=== PATIENT | female | born 2005 | race African-American/Black ===

== ENCOUNTER 2024-12-20 02:17 | Emergency (ER) | payer OTHER ==
[~2024-12-20] VITALS: Ht 160 cm; Wt 83.8 kg
--- NOTE | 2024-12-20 04:35 | ED.PDOC ---
HPI Allergic reaction HPI Comments Pt arrived in ER due to possible allergic reaction. pt VSS. No resp distress present. Denies SOB or difficulty swallowing. No hives or visible rash. Pt states she was at work and drank a strawberry fresca at 2200 and an hour later woke up with her eyes "feeling low" and itching in her throat around 0100. Pt complains of 7/10 middle back pain as well Chief Complaint: Allergic Reaction Time Seen by MD: 03:16 Reviewed Notes: Nurses Notes, Medications, Allergies Allergies: Coded Allergies: Peanut-containing Drug Products (Verified Allergy, Unknown, 12/20/24) Home Meds Active Scripts Famotidine (PEPCID TABLET) 20 Mg Tb, 1 TAB PO BID for 6 Days, #12 TAB Prov:ALAN KAHN TREE DEADENER 12/20/24 Methylprednisolone (Medrol Dosepak) 4 Mg Michael, 4 MG PO UD for 6 Days, #21 TAB UAD Prov:CRISSALAN CaseP 12/20/24 Information Source: Patient Mode of Arrival: Ambulatory Past Medical History PAST MEDICAL HISTORY: Denies Surgical History: Denies all surgeries SENIOR WRITER History: No Pertinent SENIOR WRITER History Family History Family History: Reviewed,noncontributory to illness Constitutional: denies: chills, diaphoresis, fatigue, fever, malaise, sweats, weakness, others EENTM: denies: blurred vision, double vision, ear bleeding, ear discharge, ear drainage, ear pain, ear ringing, eye pain, eye redness, hearing loss, mouth pain, mouth swelling, nasal discharge, nose bleeding, nose congestion, nose pain, photophobia, tearing, throat pain, throat swelling, voice changes, others Respiratory: denies: cough, hemoptysis, orthopnea, SOB at rest, shortness of breath, SOB with excertion, stridor, wheezing, others Cardiovascular: reports: chest pain; denies: dizzy spells, diaphoresis, Dyspnea on exertion, edema, irregular heart beat, left arm pain, lightheadedness, palpitations, PND, syncope, others Gastrointestinal: denies: abdomen distended, abdominal pain, blood streaked bowels, constipated, diarrhea, dysphagia, difficulty swallowing, hematemesis, melena, nausea, poor appetite, poor fluid intake, rectal bleeding, rectal pain, vomiting, others Genitourinary: denies: abnormal vagina bleeding, burning, dyspareunia, dysuria, flank pain, frequency, hematuria, incontinence, pain, , vagina discharge, urgency, others Neurological: denies: dizziness, fainting, headache, left sided numbness, left sided weakness, numbness, paresthesia, pre-existing deficit, right sided numbness, right sided weakness, seizure, speech problems, tingling, tremors, weakness, others Musculoskeletal: denies: back pain, gout, joint pain, joint swelling, muscle pain, muscle stiffness, neck pain, others Integumetry: reports: rash; denies: bruises, change in color, change in hair/nails, dryness, laceration, lesions, lumps, wounds, others Allergic/Immunocompromised: denies: Difficulty Healing, Frequent Infections, Hives, Itching, others Hematologic/Lymphatic: denies: anemia, blood clots, easy bleeding, easy bruising, swollen glands, others Endocrine: denies: excessive hunger, excessive sweating, excessive thirst, excessive urination, flushing, intolerance to cold, intolerance to heat, unexplained weight gain, unexplained weight loss, others Psychiatric: denies: anxiety, bipolar disorder, depression, hopeless, panic disorder, schizophrenia, sleepless, suicidal, others Physical Exam General Appearance: No Apparent Distress, Normal HEENT: Pharynx Normal Neck: Full Range of Motion, Non-Tender, Normal, Normal Inspection Respiratory: Chest Non-Tender, Lungs Clear, No Accessory Muscle Use, No Respiratory Distress, Normal Breath Sounds Cardiovascular: No Edema, No JVD, No Murmur, No Gallop, Normal Peripheral Pulses, Regular Rate/Rhythm Breast Exam: Deferred Gastrointestinal: Non Tender, Soft Genitalia: Deferred Pelvic: Deferred Rectal: Deferred Extremities: Normal capillary refill, Normal inspection, Normal range of motion, Non-tender, No pedal edema Musculoskeletal : Apperance: Normal Neurologic: Alert, deli department manager II-XII nml as Tested, No Motor Deficits, Normal Affect, Normal Mood, No Sensory Deficits Cerebellar Function: Normal Reflexes: Normal Skin: Dry, Normal Color, Rash (URTICARIAL RASH NOTED ALONG BILATERAL EYELIDS AND ARMS NO NOTED EXCORIATIONS OR OPEN LESIONS OR DRAINAGE), Warm Lymphatic: No Adenopathy Was a procedure done? Was a procedure done?: No Differential diagnosis (all) Differential Diagnosis: Anaphylaxis, Angioedema, Bronchospasm, Shock X-Ray, Labs, Meds, VS Vital Signs Date Time Temp Pulse Resp B/P (MAP) Pulse Ox O2 Delivery O2 Flow Rate FiO2 12/20/24 02:35 98.2 88 12 110/59 (76) 99 98.2 X-Ray, Labs, Meds, VS Comment DECADRON 10 MG IM. PEPCID 40 MG SCRIPT MEDROL DOSEPAK AND PEPCID. ADVISED TO REST INCREASE P.O. FLUIDS WITH ELECTROLYTES. TAKE MEDICATIONS PRESCRIBED SIDE EFFECTS DISCUSSED. FOLLOW UP WITH YOUR PCP IN 1-2 DAYS CONSIDER REFERRAL TO CLINICAL NURSE SPECIALIST FOR CONTINUED SYMPTOMS. ER RETURN PRECAUTIONS GIVEN PATIENT INDICATES UNDERSTANDING AGREES WITH DISCHARGE PLAN OF CARE. Time of 1ST Reevaluation: 04:37 Reevaluation 1ST: Improved Patient Education/Counseling: Diagnosis, Treatment, Prognosis, Need For Follow Up Family Education/Counseling: No Family Present Departure 1 Departure Time of Disposition: 04:39 Impression: Primary Impression: Allergic reaction Qualified Codes: T78.40XA - Allergy, unspecified, initial encounter Disposition: HOME / SELF CARE / HOMELESS Condition: Stable e-Prescriptions Famotidine (PEPCID TABLET) 20 Mg Tb 1 TAB PO BID for 6 Days, #12 TAB Prov: ALAN KAHN 12/20/24 Methylprednisolone (Medrol Dosepak) 4 Mg Michael 4 MG PO UD for 6 Days, #21 TAB UAD Prov: ALAN KAHN 12/20/24 Discharged With: Self Critical Care Note Critical Care Time?: No Stability Stability form required: No ALAN KAHN Dec 20, 2024 04:35
[2024-12-20] MEDS ORDERED: METH4PAK PO (04:38)
[2024-12-20] MEDS ORDERED: FAMO20TA10 PO (04:38)
[2024-12-20 05:45] VITALS: BP 110/59; PULSE 88; RESP 12; TEMP 98.2; O2SAT 99
[2024-12-20] MEDS: FAMOTIDINE 20 MG TAB PO ONE (06:10)
[2024-12-20] MEDS: DexAMETHasone SOD PHOS 10MG/1ML VIAL INJ IM ONE (06:10)
== END 2024-12-20 06:58 | disposition home or self-care (01) ==
LOC: ER 02:17
DX: T78.40XA Allergy, unspecified, initial encounter (principal); M54.6 Pain in thoracic spine; Z79.899 Other long term (current) drug therapy; Z91.010 Allergy to peanuts; Y92.89 Other specified places as the place of occurrence of the external cause
CPT/HCPCS: 96372; 99283; J1100